=== PATIENT | male | born 1960 | race Caucasian/White ===

== ENCOUNTER 2022-03-04 21:52 | Emergency (ER) | payer OTHER ==
[2022-03-04 22:00] VITALS: BMI 35.7
[2022-03-04 22:08] VITALS: BP 140/71; PULSE 116
[2022-03-04] MEDS ORDERED: PIPERACILLIN/TAZOB 3.375 GM 3.375 GM in DEXTROSE 5%-WATER - 50 ML IVPB ONE (22:27)
[2022-03-04] MEDS ORDERED: ACETAMINOPHEN 500 MG TABLET (FP) PO ONE (22:29)
[2022-03-04] MEDS ORDERED: PIPERACILLIN/TAZOBACTAM 3.375 GM VIAL IVPB ONE (22:29)
[2022-03-04] MEDS ORDERED: ACETAMINOPHEN 500 MG TABLET (FP) ONE (22:45)
[2022-03-04 23:01] LABS: HEMATOCRIT 40.6 % (35.4-49); HEMOGLOBIN 14.5 G/dL (11.7-16.9); MCH 32.2 pg (25.7-33.7); MCHC 35.6 g/dl (32.0-35.9); MEAN CELL VOLUME 90.4 fl (80-96); MEAN PLT VOLUME 8.8 fl (7.5-11.1); PLATELET COUNT 172.1 10^3/uL (134-434); RBC 4.49 10^6/uL (4.00-5.60); RDW 14.3 % (11.9-15.9); WHITE BLOOD COUNT 9.3 10^3/uL (4.0-10.8)
[2022-03-04 23:05] LABS: PLATELET ESTIMATE ADEQUATE
[2022-03-04 23:16] LABS: ALBUMIN 4.2 g/dl (3.4-5.0); BILIRUBIN,TOTAL 1.8 mg/dl (0.2-1); CALCIUM 9.4 mg/dl (8.5-10); CREATININE 0.9 mg/dl (0.55-1.3)
[2022-03-04 23:31] VITALS: TEMP 100.5
== END 2022-03-04 23:37 | disposition home or self-care (01) ==
LOC: FER 21:52
PROC: 3E033GC Introduction of Other Therapeutic Substance into Peripheral Vein, Percutaneous Approach (ICD-10-PCS; principal; 2022-03-04)
DX: L03.116 Cellulitis of left lower limb (principal)
CPT/HCPCS: 36415; 80053; 81003; 85025; 87040; 87086; 99284-25

== ENCOUNTER 2023-06-17 13:14 | Emergency (ER) | payer OTHER ==
[2023-06-17 13:33] VITALS: RESP 18; BMI 35.1
[2023-06-17 13:57] LABS: HEMATOCRIT 44.7 % (35.4-49); MCH 31.1 pg (25.7-33.7); MCHC 33.6 g/dl (32.0-35.9); MEAN CELL VOLUME 92.3 fl (80-96); MEAN PLT VOLUME 9.1 fl (7.5-11.1); PLATELET COUNT 157.5 10^3/uL (134-434); RBC 4.84 10^6/uL (4.00-5.60); RDW 13.9 % (11.9-15.9); WHITE BLOOD COUNT 10.1 10^3/uL (4.0-10.8)
[2023-06-17 14:06] LABS: ALBUMIN 4.3 g/dl (3.4-5.0); BILIRUBIN,TOTAL 1.2 mg/dl (0.2-1); BLOOD UREA NITROGEN 17.5 mg/dl (7-18); CALCIUM 8.8 mg/dl (8.5-10.1); CREATININE 1.1 mg/dl (0.6-1.3); POTASSIUM 4.3 mmol/L (3.5-5.1); SGOT/AST 28.8 U/L (15-37); TOT PROT 6.8 g/dl (6.4-8.2)
[2023-06-17 14:09] LABS: PLATELET ESTIMATE ADEQUATE
[2023-06-17 17:14] VITALS: BP 117/60; PULSE 79; TEMP 98.8
== END 2023-06-17 17:18 | disposition home or self-care (01) ==
LOC: FER 13:14
DX: R55 Syncope and collapse (principal); R42 Dizziness and giddiness; U07.1 COVID-19; R09.81 Nasal congestion; R50.9 Fever, unspecified; M79.10 Myalgia, unspecified site
CPT/HCPCS: 36415; 70450-TC; 72125-TC; 80053; 81003; 83735; 84484; 85027; 93005; 99285-25